=== PATIENT | female | born 1955 | race Caucasian/White ===

== ENCOUNTER 2023-04-20 09:28 | Day surgery (SDC) | payer MEDICARE ==
[2023-04-14 16:28] LABS: BASOPHILS # (AUTO) 0.1 X10'3 (0-0.2); BASOPHILS % (AUTO) 0.9 % (0-1); EOSINOPHILS # (AUTO) 0.1 X10'3 (0-0.9); EOSINOPHILS % (AUTO) 0.9 % (0-6); LYMPHOCYTES # (AUTO) 1.6 X10'3 (1.1-4.8); LYMPHOCYTES % (AUTO) 23.6 % (21-51); MEAN CORPUSCULAR HEMOGLOBIN 29.9 PG (27.0-31.0); MEAN CORPUSCULAR HGB CONC 33.5 g/dL (33.0-36.5); MEAN CORPUSCULAR VOLUME 89.2 FL (78-98); MEAN PLATELET VOLUME 8.4 FL (7.4-10.4); MONOCYTES # (AUTO) 0.5 X10'3 (0-0.9); MONOCYTES % (AUTO) 7.6 % (2-12); NEUTROPHILS # (AUTO) 4.6 X10'3 (1.8-7.7); PRE OP HEMATOCRIT 37.5 % (35.0-45.0); PRE OP HEMOGLOBIN 12.6 g/dL (12.0-16.0); PRE OP PLATELET COUNT 282 X10'3 (140-440); PRE OP WHITE BLOOD COUNT 6.9 10'3 (4.8-10.8); RED BLOOD COUNT 4.21 X10'6 (4.20-5.60); RED CELL DISTRIBUTION WIDTH 13.4 % (11.5-14.5)
[2023-04-14 16:38] LABS: PRE OP PROTIME 10.7 SECONDS (9.0-12.0)
[2023-04-14 16:42] LABS: ALBUMIN 4.2 G/DL (3.4-5.0); ALBUMIN/GLOBULIN RATIO 1.3 (1.1-1.5); ALKALINE PHOSPHATASE 41 IU/L (46-116); BLOOD UREA NITROGEN 18 MG/DL (7-18); BUN/CREATININE RATIO 25.4 (10.0-20.0); CALCIUM 9.1 MG/DL (8.5-10.1); CHLORIDE 103 MMOL/L (99-107); CREATININE 0.71 MG/DL (0.40-0.90); PRE OP ALT 31 U/L (30-65); PRE OP ANION GAP 8 (8-16); PRE OP AST 19 U/L (10-37); PRE OP BILIRUB, TOTAL 0.2 MG/DL (0.0-1.0); PRE OP GLUCOSE 103 MG/DL (70-104); PRE OP SODIUM 142 MMOL/L (135-145); TOTAL CARBON DIOXIDE 31.5 MMOL/L (24-32); TOTAL PROTEIN 7.4 G/DL (6.4-8.2); eGFR 82 ML/MIN
[2023-04-20] VITALS (10 sets, daily range): BP systolic 126–169; BP diastolic 73–90; PULSE 54–77; RESP 8–17; TEMP 97.7; O2SAT 97–100
[~2023-04-20] VITALS: Ht 162.6 cm; Wt 48.5 kg
[~2023-04-20 09:28] MED LIST: AMLO5TAB16 PO; CALC-1215 PO; DIGESTIVE ENZYMES; GLUC-95 PO; HYDR25TA4 PO; LACT1CAP65 PO; LEVO50TA8 PO; MULT-1085 PO; OMEG100037 PO; PANT40TA54 PO; ROSU10TA28 PO; ceFAZolin/D5W- 1GM premix 50 ML IV ONE; famotidine 20mg tablet PO ONE; ringers solution, lacted 1,000 ML IV SCH
[2023-04-20 11:03] LABS: ISTAT ANION GAP 13 (8-12); ISTAT BUN 13 mg/dL (7-18); ISTAT CL 99 mmol/L (99-107); ISTAT CREATININE 0.6 mg/dL (0.6-1.1); ISTAT GLUCOSE 97 mg/dL (70-104); ISTAT HGB 12.9 g/dl (12.0-16.0); ISTAT Hct 38 %PCV (35-45); ISTAT IONIZED CALCIUM 1.18 mmol/L (1.03-1.32); ISTAT K 3.4 mmol/L (3.5-5.1); ISTAT NA 141 mmol/L (135-145); ISTAT TOTAL CO2 29 mmol/L (24-32); ISTAT eGFR > 90 ML/MIN; POC BUN/CREATININE RATIO 21.7 (6.6-38.0)
[2023-04-20] MEDS ORDERED: proMETHazine 25mg rectal suppository RC PRN (11:15)
[2023-04-20] MEDS ORDERED: morphine 2 MG/ML inj. syringe IV PRN (11:15)
[2023-04-20] MEDS ORDERED: morphine 4 MG/ML inj SYRINge IV PRN (11:15)
[2023-04-20] MEDS ORDERED: ondansetron/PF 4mg/2ml inj IV PRN (11:15)
[2023-04-20] MEDS ORDERED: labetalol 20mg/4ml (5mg/ml) syringe IV PRN (11:15)
[2023-04-20] MEDS ORDERED: hydrALAZINE 20mg/ml inj. IV PRN (11:15)
[2023-04-20] MEDS ORDERED: ringers solution, lacted 1,000 ML IV SCH (11:15)
[2023-04-20] MEDS ORDERED: proCHLORperazine 10 MG/2 ml inj IV PRN (11:15)
[2023-04-20] MEDS ORDERED: fentaNYL/PF 50MCG/1 ML 2ML syringe IV PRN ×2 (11:15)
[2023-04-20] MEDS ORDERED: propofol inj 20 ML IV ONE (11:43)
[2023-04-20] MEDS ORDERED: dexamethasone sod phosphate 10mg/ml inj ONE (11:43)
[2023-04-20] MEDS ORDERED: desflurane 240ml liquid inh. IH ONE (11:43)
[2023-04-20] MEDS ORDERED: meperidine/PF 25mg/ml syringe ONE (11:43)
[2023-04-20] MEDS ORDERED: LIDOcaine 2% (20mg/ml) 5ml vial ONE (11:43)
[2023-04-20] MEDS ORDERED: ondansetron/PF 4mg/2ml inj ONE (11:44)
[2023-04-20] MEDS ORDERED: dexamethasone sod phosphate 4mg/ml inj. ONE (11:44)
[2023-04-20] MEDS ORDERED: acetaminophen 1,000mg/100ml IV 100 ML IV ONE (12:01)
[2023-04-20] MEDS ORDERED: BUPIVAcaine 2.5mg/ml inj 50ml vial (contains preservative) ONE (12:33)
== END 2023-04-20 14:11 | disposition home or self-care (01) ==
LOC: PAS 09:28
PROVIDERS: ATTEND Surgery
DX: R92.8 Other abnormal and inconclusive findings on diagnostic imaging of breast (principal); I20.0 Unstable angina; I10 Essential (primary) hypertension; E03.9 Hypothyroidism, unspecified; E78.5 Hyperlipidemia, unspecified; G43.909 Migraine, unspecified, not intractable, without status migrainosus; K21.9 Gastro-esophageal reflux disease without esophagitis; I25.2 Old myocardial infarction; M19.90 Unspecified osteoarthritis, unspecified site; Z79.890 Hormone replacement therapy; Z79.891 Long term (current) use of opiate analgesic; Z79.899 Other long term (current) drug therapy; Z90.710 Acquired absence of both cervix and uterus; Z98.890 Other specified postprocedural states; Z88.0 Allergy status to penicillin; Z88.1 Allergy status to other antibiotic agents; Z88.2 Allergy status to sulfonamides
CPT/HCPCS: 19301; 36415; 80047; 80053; 85025; 85610; 85730; 93005; J0131; J0690; J1100; J2175; J2405; J2704; J3490; J7030; J7120; Z7506; Z7508; Z7512; A4215; A4618; A6449; A7000